=== PATIENT | male | born 1985 | race Caucasian/White ===

== ENCOUNTER 2025-11-20 02:20 | Emergency (ER) | payer BC, SELFPAY ==
[2025-11-20 02:33] VITALS: BP 126/85
[2025-11-20 03:01] VITALS: BP 152/77
[2025-11-20 03:11] LABS: Hematocrit 48.5 % (39.0-52.0); Hemoglobin 16.4 g/dL (13.0-18.0); Mean Corp Hgb Conc. 33.8 g/dL (33.0-37.0); Mean Corpuscular Volume 89.5 fL (80.0-94.0); Nucleated Red Blood Cells % 0 % (-); Platelet Count 217 10^3/uL (130-400); Red Cell Dist. Width 12.8 % (11.5-14.5)
[2025-11-20 03:54] LABS: ALT (SGPT) 35 U/L (0-50); AST (SGOT) 28 U/L (17-59); Albumin 4.5 g/dl (3.5-5.0); Alkaline Phosphatase 89 U/L (38-126); Blood Urea Nitrogen 20 mg/dl (9-20); Calcium 9.2 mg/dl (8.4-10.2); Carbon Dioxide 25 mmol/L (22-30); Chloride 104 mmol/L (98-107); Estimated Creatinine Clearance 107 ml/min; Glucose 146 mg/dl (70-99); Lipase 28 U/L (23-300); Potassium 4.1 mmol/L (3.5-5.1); Sodium 139 mmol/L (135-145); Total Protein 7.2 g/dl (6.3-8.2); eGFR > 60.00
[2025-11-20 04:00] VITALS: BP 123/87
[2025-11-20] MEDS: TORADOL 30 MG IV (04:09)
[2025-11-20] MEDS: NSS 1000 IV (04:12)
--- NOTE | 2025-11-20 05:38 | ED.GENMED ---
History of Present Illness
General
Chief Complaint: Flank Pain
Source: patient
Exam Limitations: none
Time Seen by Provider: 11/20/25 05:00
Nursing documentation reviewed up to this point in time: agreed with
History of Present Illness
History of Present Illness:
This is a 40-year-old male with no past medical history who presents to the ER today with concerns of abdominal pain, nausea and vomiting. He reports that his family members and his home have been sick with Diarrhea and vomiting and he thought he
had a similar illness however he's not had any diarrhea. He reports that the pain is what ultimately brought him to the yard today. It is on the side of his right abdomen and radiates slower. He denies any growing pain. He says urine has been darker
but denies any blood urine. s not having any fevers. He's not had any burning with urination. He's never had symptoms like this before. There is a strong family history of kidney stones.
Past History
Past History
ED Past Medical History: None
ED Past Surgical History: None
Social History
Tobacco: Non-smoker
Alcohol: None
Drug: None
Personal: Single
Living: with family
Review of Systems
Review of Systems
All Other Systems: ROS reviewed and negative except as documented in HPI and ROS
Phy Exam
General Physical Exam
General Presentation: well appearing and no apparent distress
General age: appears stated age
General Skin: warm and dry
General Habitus: normal
General Mental: alert
General Hydration: appears well hydrated
ENT Exam
ENT Exam: EOMI
Cardiovascular Exam
Cardiovascular Exam: regular rate/rhythm and no edema
Pulmonary Exam
Pulmonary Exam: lungs clear and no respiratory distress
Gastrointestinal Exam
Gastrointestinal Exam: non tender, soft, non distended and no cva tenderness
Neurological Exam
Neurological Exam: alert, oriented x3 and CN II-XII intact
Skin Exam
Skin Exam: normal color, warm/dry and no rash
Psychiatric Exam
Psychiatric Exam: normal mood/affect
Course
Orders/Labs/Results
Orders:
Orders
11/20/25 02:45
IV Insert/Care/Rem.- Treatment PRN
11/20/25 02:50
Complete Blood Count/With Diff Urgent
Comprehensive Metabolic Panel Urgent
Lipase Urgent
11/20/25 04:01
Ketorolac [Toradol] 30 mg .ROUTE .STK-MED ONE
11/20/25 04:06
Ketorolac [Toradol] 30 mg IV NOW STA
11/20/25 04:11
0.9% Sodium Chloride 1000 ml [Nss] 1,000 ml IV BOLUS
11/20/25 04:13
CT Abd/pelvis Wo Iv Cont Urgent
Comment:
Reason For Exam: kidney stones
11/20/25 05:57
Urinalysis Reflex To Culture Urgent
Date Specimen was Collected: 11/20/25
Time Specimen was Collected: 02:45
Urine Microscopic Reflex Cult Urgent
Urine Culture Urgent
CHAPO Source: U
Specimen Description:
Date Specimen was Collected: 11/20/25
Time Specimen was Collected: 02:45
11/20/25 07:39
Tamsulosin [Flomax] 0.4 mg PO NOW STA
Abnormal Lab Results
11/20/25 11/20/25
02:50 05:57
Absolute Neuts (auto) 7.9 H 10^3/uL
(1.4-6.5)
Absolute Monos (auto) 0.7 H 10^3/uL
(0.1-0.6)
Neutrophils % 77.6 H %
(42.2-75.2)
Lymphocytes % 14.4 L %
(20.5-51.1)
Glucose 146 H mg/dl
(70-99)
Ur Occult Blood Reflex 4+ A
(Negative)
Urine RBC 26-30 A /HPF
(0-2)
Urine Bacteria (Reflex) Moderate A
(Negative)
Urine Albumin (Reflex) 2+ A
(Neg - Trace)
11/20/25 02:50
11/20/25 02:50
Vital Signs
Initial and Last Documented VS:
Initial Vital Signs
Temp Pulse BP Pulse Ox
98.0 F 79 126/85 98
11/20/25 02:33 11/20/25 02:33 11/20/25 02:33 11/20/25 02:33
Last Documented Vital Signs
Temp Pulse Resp BP Pulse Ox
98.0 F 68 15 114/75 95
11/20/25 02:33 11/20/25 06:57 11/20/25 06:57 11/20/25 06:57 11/20/25 05:39
MDM/Problems Addressed
Differential Diagnosis Includes:
ddx include gastroenteritis, appendicitis, nephrolithiasis
MDM/Problems Addressed:
40-year-old male presents the year with concerns of abdominal pain and vomiting. He was found to have a 9 mm stone at the right upj lar with mild right hydronephrosis. His pain is well controlled with Toradol in the ER and his nausea as well
control controlled with Zofran. He did not require any further medications for pain management. He is a febrile. He has no leukocytosis noted on blood work. Urine analysis is not concerning for infection.
Patient would like to trial stone passage at home. I reviewed case with urologist senior market intelligence consultant Who is comfortable with this plan and was stirring him on Flomax since he is comfortable at this time with Toradol. I did discuss with patient that stones of
the size have about around a 10% chance of passing on their own. Patient would still like to proceed with trial of stone passage as an outpatient. Will initiate Flomax. Patient will take Motrin but will take one Percocet tablet as needed for
breakthrough pain. To discuss Risks opioid pain medication. Discussed strict return precautions such as fever, burning with urination, increasing or worsening pain. Patient will call Dr. C[place] office. Patient stable for discharge.
*Pulse Oximetry
SaO2: 95
Oxygen Mode of Delivery: Room air
Patient hypoxic: no
*Critical Care Note
Total Time (30-74mins, 75-104mins- exclusive of procedures): Not Applicable
ED Attending Note
-
Portions of this chart may have been created with voice recognition software.� Occasional wrong word or��sound alike� substitutions may have occurred due to the inherent limitations of voice recognition software.
Discharge Plan
Departure
Patient Disposition: Home (Routine Discharge)
Date of Disposition: 11/20/25
Time of Disposition: 07:48
Patient with high blood pressure during this ER visit?: Yes
Condition: Good
Discharge Problem:
Ureteropelvic junction calculus
Instructions: Kidney Stones (DC), How to Strain Your Urine, BLOOD PRESSURE
Prescriptions:
New
ondansetron HCl 4 mg tablet
4 mg PO Q6H PRN (Reason: nausea and vomiting) Qty: 10 0RF
tamsulosin 0.4 mg capsule
0.4 mg PO DAILY Qty: 10 0RF
oxycodone-acetaminophen [Percocet] 5-325 mg tablet
1 tab PO Q6HPRN PRN (Reason: pain) Qty: 5 0RF
No Action
valacyclovir [Valtrex] 500 MG tablet
500 mg PO DAILY
lorazepam 1 MG tablet
1 mg PO Q6HPRN PRN (Reason: anxiety)
escitalopram oxalate [Lexapro] 10 MG tablet
10 mg PO DAILY
Saccharomyces boulardii 250 MG capsule
250 mg PO BID Qty: 30 0RF
daptomycin 500 MG/10 ML recon soln
500 mg IV Q24H Qty: 0 0RF
oxycodone-acetaminophen 5 MG/325 MG tablet
1 tab PO Q4HPRN PRN (Reason: pain) Qty: 20 0RF
Referrals:
Leona Sandoval MD [Active, Urology] - Call in 1-3 days for appt
Sofía Darden MD [Family Provider, Family Practice]
Activity Restrictions/Additional Instructions:
Zofran has been sent to your pharmacy. You can take 1 tablet every 6 hours as needed for nausea. Please stick to Motrin for managing her pain but should you have breakthrough pain, you can try 1 Percocet tablet. Flomax has been sent to your
pharmacy. You can take 1 tablet once daily until stone passage. As discussed, you have a 9 mm stone lodged at the right UPJ, this has around a 10% chance of passing on its own.
Please call attached number to schedule follow-up with urology if you have recurrent pain or not passing the stone. PLEASE RETURN TO ER SHOULD YOU DEVELOP BURNING WITH URINATION, PELVIC PAIN, FEVERS OR CHILLS, CHEST PAIN, OR ANY OTHER SIGNS OR
SYMPTOMS WORRISOME TO YOU!
Interventions
Interventions:
*General Assessment Last Done: 11/20/25 02:41
*Neglect/Abuse Screening Last Done: 11/20/25 02:41
*ED COVID-19 Vaccine History Last Done: 11/20/25 02:41
*ED Influenza Vaccine History Last Done: 11/20/25 02:41
[facility] Risk Assessment Tool Last Done: 11/20/25 03:02
*Risk Screen - Suicide (C-SSRS) Last Done: 11/20/25 02:41
*Nursing Disposition Last Done: 11/20/25 08:08
YQ-Saeiky-Hllllpqtou Assessment Last Done: 11/20/25 06:59
ED-Male Genitourinary Assessment Last Done: 11/20/25 03:03
Discharge Date and Time
Discharge Date/Time: 11/20/25 08:09
Print Language: GEORGIAN
[2025-11-20 06:10] LABS: Urine Character Clear (Clear)
[2025-11-20 06:43] LABS: Urine Red Blood Cell 26-30 /HPF (0-2)
[2025-11-20 06:57] VITALS: BP 114/75
[2025-11-20] MEDS: FLOMAX 0.4 MG PO (08:00)
== END 2025-11-20 08:09 | disposition home or self-care (01) ==
LOC: EMR 02:20
PROVIDERS: EMERGENCY PHYSICIAN Student in an Organized Health Care Education/Training Program; FAMILY PHYSICIAN Family Medicine
DX: N13.2 Hydronephrosis with renal and ureteral calculous obstruction (principal); R11.2 Nausea with vomiting, unspecified
CPT/HCPCS: 96374; 96361; 99284; 74176; 80053; 81003; 81015; 83690; 85025; 87086